=== PATIENT | female | born 1995 | race Caucasian/White ===

== ENCOUNTER 2019-04-18 08:54 | Emergency (ER) | payer OTHER ==
[~2019-04-18] VITALS: Ht 157.5 cm; Wt 58.1 kg
[~2019-04-18 08:54] MED LIST: FAMO-90 PO
[2019-04-18 09:02] VITALS: BP 110/73
--- NOTE | 2019-04-18 09:08 | NUR ---
Patient ambulated to bed 6 with family. RN evaluating patient at bedside.
--- NOTE | 2019-04-18 09:08 | NUR ---
PATIENT PRESENTS TO ED WITH C/O R EAR PAIN X1 DAY AND MUFFLED HEARING IN LEFT EAR X3 DAYS. PT CURRENTLY TAKING CEPHALEXIN X2 DAYS FOR EAR INFECTION/THROAT INFECTION. PATIENT STATES PAIN OF 6/10 AT THIS TIME; VSS; PATIENT POSITIONED FOR COMFORT; HOB ELEVATED; BEDRAILS UP X2; BED DOWN. ER MD MADE AWARE OF PT STATUS.
--- NOTE | 2019-04-18 09:10 | NUR ---
Dr. Reid is evaluating the patient at bedside.
[2019-04-18] MEDS ORDERED: hydrOXYzine HCL 25 MG TAB PO ONE (09:15)
[2019-04-18] MEDS ORDERED: DEXAMETHASONE 10 MG/ML VIAL IM ONE (09:15)
[2019-04-18] MEDS ORDERED: CLINDAMYCIN 600 MG/4 ML VIAL IM ONE (09:15)
[2019-04-18] MEDS ORDERED: MECLIZINE 25 MG TAB PO ONE (09:15)
--- NOTE | 2019-04-18 10:21 | NUR ---
Dr. Reid is evaluating the patient at bedside.
[2019-04-18 11:00] VITALS: BP 112/74
--- NOTE | 2019-04-18 11:00 | NUR ---
Patient discharged TO HOME. Written and verbal after care instructions given and explained. Rx of FIORICET, PREDNISONE, AZITHROMYCIN given. Patient educated on indication of medication including possible reaction and side effects. All questions addressed prior to discharge. ID band removed. Patient advised to follow up with PMD.
== END 2019-04-18 11:00 | disposition home or self-care (01) ==
LOC: MED 08:54
DX: H65.93 Unspecified nonsuppurative otitis media, bilateral (principal); J06.9 Acute upper respiratory infection, unspecified; Z79.899 Other long term (current) drug therapy
CPT/HCPCS: 96372; 99283; J1100; J3490; J8597

== ENCOUNTER 2021-04-09 10:10 | Emergency (ER) | payer OTHER ==
[~2021-04-09] VITALS: Ht 157.5 cm; Wt 62.6 kg
[2021-04-09 10:20] VITALS: BP 121/68
--- NOTE | 2021-04-09 10:41 | NUR ---
26/ PRESENTS TO ED WITH C/O ABDOMINAL PAIN SINCE LAST NIGHT. REPORTS N/V/D, STATES SHE TOOK PEPCID AND REGLAN WITH NO RELIEF. DENIES CP, SOB, FEVERS. PT STATES INTERMITTENT 7/10 CRAMPING PAIN. ABD SOFT NON TENDER. MEDHX: DENIES ALLERGIES: DENIES
[2021-04-09] MEDS ORDERED: NACL 0.9% 1,000 ML IV ONE (11:00)
[2021-04-09] MEDS ORDERED: DICYCLOMINE HCL LIQUID 20 MG, ALUMINUM HYD/MAG/SIMETHICONE 30 ML, LIDOCAINE VISCOUS 2% ... PO ONE ×3 (11:00)
--- NOTE | 2021-04-09 11:00 | NUR ---
LAB AT BEDSIDE
[2021-04-09] MEDS ORDERED: ONDANSETRON 4 MG/2 ML VIAL IVP ONE (11:05)
[2021-04-09] MEDS ORDERED: FAMOTIDINE 20 MG/2 ML VIAL IVP ONE (11:05)
[2021-04-09] MEDS ORDERED: ALUMINUM HYD/MAG/SIMETHICONE 30 ML UDC ONE (11:05)
[2021-04-09] MEDS ORDERED: DICYCLOMINE HCL LIQUID 10 MG/5 ML UDC ONE (11:05)
[2021-04-09 11:11] LABS: BASOPHILS % (AUTO) 0.1 % (0.0-2.0); EOSINOPHILS % (AUTO) 0.3 % (0.0-4.0); HEMATOCRIT 31.8 % (36-48); HEMOGLOBIN 10.7 g/dL (12.0-16.0); LYMPHOCYTES # (AUTO) 1.5 K/uL (2.5-16.5); LYMPHOCYTES % (AUTO) 14.1 % (20.5-51.1); MEAN CORPUSCULAR HEMOGLOBIN 29 pg (27-31); MEAN CORPUSCULAR HGB CONC 34 g/dL (33-37); MEAN CORPUSCULAR VOLUME 86.6 fL (80-94); MONOCYTES # (AUTO) 0.8 K/uL (0.8-1.0); NEUTROPHILS # (AUTO) 8.5 K/uL (1.8-7.7); NEUTROPHILS % (AUTO) 78.5 % (42.2-75.2); PLATELET COUNT (AUTO) 309 K/uL (140-450); RED BLOOD CELL COUNT(AUTO) 3.68 MIL/uL (4.20-5.40); RED CELL DISTRIBUTION WIDTH 13.4 % (11.6-13.7); WHITE BLOOD COUNT (AUTO) 10.8 K/uL (4.8-10.8)
[2021-04-09 11:41] LABS: ALBUMIN 4.2 g/dL (3.4-5.0); ANION GAP 13.8 (8-16); CARBON DIOXIDE 25.2 mmol/L (21-32); CREATININE 1.4 mg/dL (0.6-1.3); TOTAL BILIRUBIN 0.3 mg/dL (0.0-1.0)
[2021-04-09] MEDS ORDERED: METO-486 PO (11:56)
[2021-04-09] MEDS ORDERED: FAMO-90 PO (11:56)
[2021-04-09] MEDS ORDERED: ACET-10509 PO (11:56)
[2021-04-09 12:36] VITALS: BP 121/68
--- NOTE | 2021-04-09 12:36 | NUR ---
Patient discharged with v/s stable. Written and verbal after care instructions ABOUT GASTRITIS given and explained. Patient alert, oriented and verbalized understanding of instructions. Ambulatory with steady gait. All questions addressed prior to discharge. ID band removed. Patient advised to follow up with PMD. Rx of TYLENOL EXTRA STRENGTH, PEPCID AND REGLAN given. Patient educated on indication of medication including possible reaction and side effects. Opportunity to ask questions provided and answered.
== END 2021-04-09 12:36 | disposition home or self-care (01) ==
LOC: MED 10:10
DX: K29.70 Gastritis, unspecified, without bleeding (principal); G43.909 Migraine, unspecified, not intractable, without status migrainosus; Z79.899 Other long term (current) drug therapy
CPT/HCPCS: 36415; 80053; 81002; 81025; 83690; 85025; 96361; 96374; 96375; 99284; J2405; J3490

== ENCOUNTER 2021-04-09 18:46 | Emergency (ER) | payer OTHER ==
[~2021-04-09] VITALS: Ht 157.5 cm; Wt 63.0 kg
[~2021-04-09 18:46] MED LIST changes: +ACET-10509 PO; +METO-486 PO
[2021-04-09 18:51] VITALS: BP 120/51
[2021-04-09] MEDS: HALOPERIDOL IM 5 MG/ML VIAL IM ONE (19:31)
[2021-04-09 20:49] VITALS: BP 120/51
== END 2021-04-09 20:49 | disposition home or self-care (01) ==
LOC: MED 18:46
DX: R11.2 Nausea with vomiting, unspecified (principal); R19.7 Diarrhea, unspecified; Z79.899 Other long term (current) drug therapy
CPT/HCPCS: 81002; 81025; 96372; 99283; J1630